=== PATIENT | female | born 1960 | race Caucasian/White ===

== ENCOUNTER 2017-05-05 08:25 | Day surgery (SDC) | payer OTHER ==
[2017-05-04 10:37] VITALS: BMI 25.0
[2017-05-05] MEDS ORDERED: ISOSULFAN BLUE 10 MG/ML VIAL SQ ONE (10:37)
[2017-05-05] MEDS ORDERED: LIDOCAINE HCL 1%, 10 MG/ML (20ML VIAL) ONE ×2 (10:37→13:44)
[2017-05-05] MEDS ORDERED: ROPIVACAINE HCL 0.5% 30ML VIAL ONE (11:16)
[2017-05-05] MEDS ORDERED: MIDAZOLAM HCL 2 MG/2 ML SINGLE DOSE VIAL ONE ×2 (11:17)
[2017-05-05] MEDS ORDERED: DEXAMETHASONE SOD PHOSPHATE/PF 10 MG/ML SDV ONE (11:17)
[2017-05-05] MEDS ORDERED: PROPOFOL 20 ML ONE ×5 (13:10→13:45)
[2017-05-05] MEDS ORDERED: ceFAZolin SODIUM 1 GM VIAL ONE (13:20)
[2017-05-05] MEDS ORDERED: ONDANSETRON 4 MG/2 ML VIAL ONE (13:20)
[2017-05-05] MEDS ORDERED: ceFAZolin SODIUM 1 GM VIAL IVPB ONE (13:20)
[2017-05-05] MEDS ORDERED: LIDOCAINE HCL 1%, 10 MG/ML (20ML VIAL) IJ ONE (13:40)
[2017-05-05] MEDS ORDERED: oxyCODONE HCL 5 MG TABLET PO PRN (15:25)
[2017-05-05] MEDS ORDERED: ONDANSETRON 4 MG/2 ML VIAL IVPUSH PRN (15:25)
[2017-05-05] MEDS ORDERED: LACTATED RINGERS SOLUTION 1,000 ML IV SCH (15:30)
[2017-05-05 15:52] VITALS: TEMP 98.5
[2017-05-05 16:44] VITALS: BP 143/81; PULSE 75
--- NOTE | 2017-05-06 09:25 | OP ---
DATE OF OPERATION: 05/05/2017 PREOPERATIVE DIAGNOSIS: Right breast cancer. POSTOPERATIVE DIAGNOSIS: Right breast cancer. PROCEDURE: Right breast wire-localized central lumpectomy, primary reconstruction, and right sentinel node biopsy. SURGEON: Bita Evangelista MD ANESTHESIA: Paravertebral block and IV sedation. ESTIMATED BLOOD LOSS: Minimal. COMPLICATIONS: None. This was a sterile procedure. INDICATIONS: The patient presented with a superficial palpable mass in the right breast 11 o'clock retroareolar location. She had a mammogram and ultrasound that also noted a second area in the right 1 o'clock areolar border. A biopsy of that revealed an invasive carcinoma, and a biopsy of the palpable mass also revealed an invasive carcinoma. She had an MRI that noted no other abnormality in the right breast. My recommendation was a right central lumpectomy and sentinel node biopsy. The procedure was discussed with her; all of her questions answered. PROCEDURE IN DETAIL: The patient was brought to [facility], taken down to Breast Imaging where a wire was used to localize the clip in the right 1 o'clock location. She was brought to Nuclear Medicine, and technetium labelled sulfa colloid was injected into the 11 o'clock areolar border by the radiologist. She was then brought up to the operating room, and after a paravertebral block and IV sedation and IV antibiotics, the right breast was prepped; 5 mL of Lymphazurin blue dye was injected by me into the right subareolar plexus. Breast was massaged for 5 minutes. Once this was completed, the right breast and axilla were re-prepped and re-draped, and a 4-cm incision was made in the right axilla, carried down to the clavipectoral fascia to identify a hot and blue lymph node. This was sent as right axillary sentinel node number 1, hot and blue. There was a second sentinel node as well, also hot and blue. There was a third which I initially thought was hot, but had no counts; therefore, sent as a right axillary non-sentinel node. Hemostasis was controlled with electrocautery. There was no blue dye radioactivity or pathologic-appearing lymph node in the right axilla. Therefore, once hemostasis was assured, the right central lumpectomy was performed. An ellipse of skin was taken to include the nipple areola as well as the palpable mass within the lumpectomy. Superior, inferomedial, and lateral flaps were raised, and the wire was also used to make sure this was included within the specimen and the complete right central mastectomy was performed, tagged with a long stitch lateral, short stitch superior, sent to Pathology for permanent section. Hemostasis with electrocautery. There was a wide defect left from this lumpectomy. Therefore, tissue transfer procedure was performed. Superior, inferomedial, and lateral flaps were raised , and the parenchyma was approximated in 3 layers with interrupted 2-0 Vicryl, skin approximated with interrupted 3-0 Vicryl, and running 4-0 Biosyn. The axillary incision was also closed in routine fashion of 3-0 Vicryl and running 4-0 Prolene. A sterile dressing with Tegaderm and 4 x 4's applied as well as a mammary binder. She tolerated the procedure well and was taken to recovery in good condition. BITA EVANGELISTA M.D. [id number] MTDD
--- NOTE | 2017-05-10 15:30 | PATH ---
Surgical Pathology Report Patient Name: DONALD WOLF [facility]. Rec. #: [id number] /Age/Gender: 1960 (Age: 57) / F Account: [id number] Location: [facility] SURGICAL Taken: 05/05/2017 Received: 05/06/2017 Reported: 05/10/2017 Physicians: Bita Kline M.D. Specimen(s) Received A: RIGHT AXILLARY SENTINEL LYMPH NODE #1 B: RIGHT AXILLARY SENTINEL LYMPH NODE #2 C: RIGHT AXILLARY NON-SENTINEL LYMPH NODE D: RIGHT BREAST LUMPECTOMY Clinical History Breast cancer Final Diagnosis A. SENTINEL LYMPH NODE #1, RIGHT AXILLARY, BIOPSY: ONE LYMPH NODES NEGATIVE FOR METASTATIC CARCINOMA BY H&E STAIN (0/1). B. SENTINEL LYMPH NODE #2, RIGHT AXILLARY, BIOPSY: TWO LYMPH NODES NEGATIVE FOR METASTATIC CARCINOMA BY H&E STAIN (0/2). C. NON-SENTINEL LYMPH NODE, RIGHT AXILLARY, LYMPHADENECTOMY: THREE LYMPH NODES NEGATIVE FOR METASTATIC CARCINOMA BY H&E STAIN (0/3). D. BREAST, RIGHT, LUMPECTOMY: TWO FOCI OF INVASIVE LOBULARCARCINOMA, PLEOMORPHIC TYPE, 2.0 AND 1.4 CM. LOBULAR CARCINOMA N SITU (LCIS), PLEOMORPHIC AND CLASSICAL TYPES, PRESENT. 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 DCIS AND EXTENT: DCIS IS <25%; ASSOCIATED WITH BOTH FOCI OF INVASIVE CARCINOMA AND PRESENT FOCALLY AWAY FROM IT, WITH EXTENSIONS INTO NIPPLE DUCT AND PAGET'S DISEASE OF THE NIPPLE. SURGICAL RESECTION MARGINS: INVASIVE CARCINOMA FOCALLY EXTENDS TO THE SUPERIOR MARGIN OF RESECTION AT THE SMALLER FOCUS; DCIS IS LESS FOCALLY <1.0 MM FROM THE SUPERIOR MARGIN OF RESECTION AT THE SMALLER FOCUS; OTHER MARGINS ARE NEGATIVE FOR INVASIVE CARCINOMA, DCIS AND PLEOMORPHIC LCIS. SKIN: INVASIVE CARCINOMA DIRECTLY INVOLVES DERMIS WITHOUT SKIN ULCERATION. NIPPLE: DCIS INVOLVES NIPPLE EPIDERMIS (PAGET'S DISEASE PRESENT). LYMPHOVASCULAR INVASION: NOT DEFINITIVELY IDENTIFIED. PERINEURAL INVASION: FOCALLY SUSPICIOUS. SURROUNDING BREAST TISSUE: FIBROCYSTIC CHANGES FOCAL DUCT DILATATION AND DENSE STROMAL FIBROSIS. PATHOLOGIC STAGING: mpT1c pN0 (ALSO REFER TO CHECKLIST BELOW) RECEPTOR STATUS: REFER TO CHECKLIST BELOW. Comment: The histologic features of both foci of invasive carcinoma seen with high nuclear grade and lobular gross pattern. Immunohistochemical stain for E-cadherin performed and interpreted [facility] on blocks D3 and D10 show the following: invasive carcinoma cells in both foci are negative for E-cadherin, supporting lobular phenotype. E-cadherin also highlights foci of DCIS, positive for E-cadherin and foci of LCIS, negative for E-cadherin. The case was discussed with Dr. Kline on 05/10/17. Comments Breast Invasive Carcinoma: Surgical Pathology Cancer Case Summary Based on AJCC/UICC TNM, 7th edition Procedure _x_ Excision with image-guided localization Lymph Node Sampling _x_ Aniwa and non-sentinel lymph nodes Specimen Laterality _x_ Right Tumor Size: Size of Largest Invasive Carcinoma Greatest dimension of largest focus of invasion over 1 mm: 2.0 cm (20 mm) Tumor Focality _x_ Multiple foci of invasive carcinoma Number of foci: 2 Sizes of individual foci: 2.0 and 1.4 cm Macroscopic and Microscopic Extent of Tumor Skin _x_ Invasive carcinoma directly invades into the dermis or epidermis without skin ulceration Nipple _x_ DCIS involves nipple epidermis (Paget's disease of the nipple) Skeletal Muscle _x_ No skeletal muscle present Ductal Carcinoma In Situ (DCIS) _x_ DCIS is present _x_ as a minor component (<25% of tumor) Lobular carcinoma in situ (LCIS) _x_ Present, pleomorphic type Histologic Type of Invasive Carcinoma: _x_ Invasive lobular carcinoma, pleomorphic and classical type Histologic Grade: (Peak Histologic Score) Tubular Differentiation _x_ Score 3 Nuclear Pleomorphism _x_ Score 3 Mitotic Rate _x_ Score 2 Overall Grade _x_ Not applicable (lobular carcinoma) Margins _x_ Margin positive for invasive carcinoma: superior, focally (at the smaller focus) _x_ Margin close to (<1 mm) DCIS: superior, focally (at the smaller focus) Lymph-Vascular Invasion _x_ Not definitively identified Lymph Nodes Total number of lymph nodes examined (sentinel and nonsentinel): 6 Number of sentinel lymph nodes examined: 3 Number of lymph nodes with macrometastases (> 2 mm): 0 Number of lymph nodes with micrometastases (>0.2 mm to 2 mm and/or >200cells):0 Number of lymph nodes with isolated tumor cells (=0.2 mm and =200 cells): 0 Size of largest metastatic deposit (if present): n/a Extranodal Extension _x_ Not applicable Pathologic Staging (pTNM) Primary Tumor (Invasive Carcinoma): mpT1c Regional Lymph Nodes (pN): pN0 Distant Metastasis (pM): not applicable Biomarker Studies Results of ER and VT studies performed on this specimen (block # D3) at [facility] are as follows: ER (clone [id number] mouse monoclonal antibody by [employer]): ~90% nuclear staining with strong to moderate intensity (Positive). VT (clone16 mouse monoclonal antibody by [employer]): ~80% nuclear staining with strong to moderate intensity (Positive). Results of Her2 an Ki67 studies will be reported separately in an addendum. Positive and negative controls (internal if applicable) show appropriate results. Formalin fixation and cold ischemic times are within current ASCO/CAP recommendations for ER, VT and Her2 testing. Electronically Signed Ayush Randhawa M.D. Addendum Reported: 05/11/2017 Addendum Diagnosis Results of Her2 (IHC) & Ki-67 studies performed on block D3 at [place], [place] ([id number]) are as follows: Her2 IHC (EP3 from [employer], formerly known as [id number], using [employer] Polymer Refine detection kit): 0 (Negative) Ki-67: up to 25-30% (Intermediate proliferation index) Positive and negative controls (internal if applicable) show appropriate results. Ayush Randhawa M.D. Gross Description A. Received in formalin labeled "right axillary sentinel lymph node #1" is a 2.0 x 1.4 x 0.5 cm romero, irregular lymph node with attached fat. The specimen is bisected and entirely submitted in 2 cassettes. B. Received in formalin labeled "right axillary sentinel lymph node #2," are 2 irregular lymph nodes measuring 0.7 x 0.6 x 0.2 cm and 1.4 x 0.8 x 0.5 cm. The larger lymph node is bisected and the specimen is entirely submitted in 3 cassettes as follows: 1-one whole lymph node; 2-3-one bisected lymph node. C. Received in formalin labeled "right axillary non-sentinel node" is a 1.4 x 1.1 x 0.6 cm romero, irregular lymph node with attached fat. There are 2 additional smaller lymph nodes measuring 0.3 and 0.6 cm in greatest dimension received within the same container. The specimen is entirely submitted in 3 cassettes as follows: 1-2-one bisected lymph node; 3-two whole lymph nodes. D. Received fresh on an [employer], labeled "right breast lumpectomy" is a 9.2 x 6.3 x 2.5 cm. romero-yellow, irregular, portion of fibroadipose tissue with a needle localization wire present. There is a short suture marking the superior aspect and a long suture marking the lateral aspect, per the surgeon. The anterior surface displays a 5.8 x 2.8 cm romero, elliptical portion of skin with a 1.1 cm in diameter nipple. There is a 1.2 x 0.9 palpable skin lesion 0.5 cm superior-lateral to the nipple. The specimen is inked as follows: Superior blue; inferior green; lateral red; medial yellow; deep black. The specimen is serially sectioned from lateral to medial. Sectioning reveals a 1.8 x 1.5 x 1.5 cm romero, indurated mass involving the skin, contiguous with the skin lesion. The mass is 0.9 cm from the inferior margin, 0.9 cm from the superior margin and 0.7 cm from the deep margin. There is a 1.0 x 0.7 x 0.7 cm second mass superior and medial to the first mass. The second mass is at 0.3 cm from the superior margin and is 0.7 cm from the deep margin. The remaining breast parenchyma displays multiple foci of dense white fibrous tissue. Licensed Physical Therapist Assistant sections are submitted in 12 cassettes as follows: 1-serially sectioned nipple: 2-subareolar shave; 3-one fullface section of mass with skin and deep margin; 4-5-mass with skin, inferior and deep margins; 6-7-mass with skin and superior margin; 8-additional deep margin; 9-10-one full face section each of second mass (each with superior and deep margins); 11-lateral margin; 12-medial margin. Time to fixation: <1h Total formalin fixation time: ~26h 05/06/201705/06/2017
== END 2017-05-05 16:45 | disposition home or self-care (01) ==
LOC: JASU-SURG 08:25
PROVIDERS: ATTEND Surgery
PROC: 0JX60ZC Transfer Chest Subcutaneous Tissue and Fascia with Skin, Subcutaneous Tissue and Fascia, Open Approach (ICD-10-PCS; 2017-05-05)
PROC: 0HBT0ZZ Excision of Right Breast, Open Approach (ICD-10-PCS; principal; 2017-05-05 12:00)
PROC: 07B50ZX Excision of Right Axillary Lymphatic, Open Approach, Diagnostic (ICD-10-PCS; 2017-05-05 12:00)
DX: C50.211 Malignant neoplasm of upper-inner quadrant of right female breast (principal)
CPT/HCPCS: 19281; 78195-TC; 88307-TC; 88342-TC; 94760; A9541

== ENCOUNTER 2017-05-18 11:22 | Day surgery (SDC) | payer OTHER ==
[2017-05-17 09:14] VITALS: BMI 25.0
[~2017-05-18 11:22] MED LIST: LIDOCAINE HCL 1%, 10 MG/ML (20ML VIAL) IJ ONE
[2017-05-18] MEDS ORDERED: LIDOCAINE HCL 1%, 10 MG/ML (20ML VIAL) ONE ×2 (13:13→15:40)
[2017-05-18] MEDS ORDERED: PROPOFOL 20 ML ONE ×2 (15:17)
[2017-05-18] MEDS ORDERED: MIDAZOLAM HCL 2 MG/2 ML SINGLE DOSE VIAL ONE (15:17)
[2017-05-18] MEDS ORDERED: ceFAZolin SODIUM 1 GM VIAL IVPB ONE (15:30)
[2017-05-18] MEDS ORDERED: ceFAZolin SODIUM 1 GM VIAL ONE (15:30)
[2017-05-18] MEDS ORDERED: LIDOCAINE HCL 1%, 10 MG/ML (20ML VIAL) IJ ONE (15:38)
[2017-05-18] MEDS ORDERED: oxyCODONE HCL 5 MG TABLET PO PRN ×2 (16:12)
[2017-05-18] MEDS ORDERED: ONDANSETRON 4 MG/2 ML VIAL IVPUSH PRN (16:12)
[2017-05-18] MEDS ORDERED: LACTATED RINGERS SOLUTION 1,000 ML IV SCH (16:15)
[2017-05-18 16:41] VITALS: TEMP 97.7
--- NOTE | 2017-05-18 17:04 | OP ---
DATE OF OPERATION: 05/18/2017 PREOPERATIVE DIAGNOSIS: Right breast cancer with close superior margin. POSTOPERATIVE DIAGNOSIS: Right breast cancer with close superior margin. PROCEDURE: Right breast re-excision lumpectomy. SURGEON: Bita Kline MD ANESTHESIA: Local and IV sedation. ESTIMATED BLOOD LOSS: Minimal. COMPLICATIONS: None. This was a sterile procedure. INDICATION FOR PROCEDURE: Patient had a right central lumpectomy with sentinel node biopsy for 2 invasive carcinomas. On the smaller carcinoma measuring 1.4, she had a close superior margin to the invasive carcinoma as well as less than a millimeter from DCIS. Therefore, my recommendation was a re-excision of the superior margin. The procedure was discussed with all her questions answered. PROCEDURE IN DETAIL: Patient was brought to [facility], taken into the operating room, and after IV sedation and IV antibiotics, the right breast was prepped and draped in the usual sterile fashion. The central right breast was anesthetized with 1% lidocaine without epinephrine. The prior lumpectomy incision was reopened, and a new superior margin was taken, tagged with a long stitch lateral/short stitch superior, sent as a right breast superior margin. Once hemostasis was assured, there was a wide defect left. Therefore, the parenchyma was approximated in 2 layers of interrupted 2-0 Vicryl, skin approximated with interrupted 3-0 Vicryl and running 4-0 Biosyn. A sterile dressing of Steri-Strips and Tegaderm was applied. She tolerated the procedure well, was taken to recovery in good condition. Merna [id number]
[2017-05-18 18:32] VITALS: BP 129/65; PULSE 73
--- NOTE | 2017-05-21 13:47 | PATH ---
Surgical Pathology Report Patient Name: DONALD WOLF [facility]. Rec. #: [id number] /Age/Gender: 1960 (Age: 57) / F Account: [id number] Location: [facility] SURGICAL Taken: 05/18/2017 Received: 05/19/2017 Reported: 05/21/2017 Physicians: Bita Kline M.D. Specimen(s) Received RIGHT BREAST NEW SUPERIOR MARGIN Clinical History Right breast carcinoma Final Diagnosis RIGHT BREAST, NEW SUPERIOR MARGIN, EXCISION: DUCTAL CARCINOMA IN SITU (DCIS), INTERMEDIATE NUCLEAR GRADE, SOLID, CRIBRIFORM, AND FLAT PATTERN WITH CENTRAL NECROSIS. DCIS IS PRESENT IN 3 OF 10 SUBMITTED BLOCKS. DCIS IS LESS THAN 0.1 CM FROM THE SUPERIOR MARGIN. ADDITIONAL AREAS OF LOBULAR CARCINOMA IN SITU (LCIS), CLASSICAL TYPE PRESENT. NO INVASIVE CARCINOMA IDENTIFIED. Comment: Also see prior specimen [id number]. Immunohistochemical stain for E-Cadherin is positive in areas of DCIS, and negative in areas of LCIS. Immunostain for AE 1/3 on a selected block does not reveal residual invasive carcinoma. Electronically Signed Tahir Barger M.D. Gross Description Received in formalin, labeled "right breast new superior margin," is a 4.5 x 3.1 x 1.2 cm. romero-yellow, irregular, portion of fibroadipose tissue with a short suture marking the superior aspect and a long suture marking the lateral aspect of the specimen, per the surgeon. There is no date localization wire present. . There is no skin or nipple present. The specimen is inked as follows: superior and lateral blue; inferior green; medial yellow; anterior red; deep black. The specimen is serially sectioned from lateral to medial. Sectioning reveals unremarkable fibroadipose tissue. The specimen is entirely and sequentially submitted from lateral to medial in 10 cassettes. Total formalin fixation time: Approximately 26 hours 05/19/201705/19/2017
== END 2017-05-18 17:50 | disposition home or self-care (01) ==
LOC: JASU-SURG 11:22
PROVIDERS: ATTEND Surgery
PROC: 0HBT0ZZ Excision of Right Breast, Open Approach (ICD-10-PCS; principal; 2017-05-18 14:00)
DX: C50.911 Malignant neoplasm of unspecified site of right female breast (principal)
CPT/HCPCS: 88307-TC; 88341-TC; 88342-TC; 94760

== ENCOUNTER 2017-05-26 12:54 | Day surgery (SDC) | payer OTHER ==
[2017-05-25 16:03] VITALS: BMI 25.0
[2017-05-26] MEDS ORDERED: PROPOFOL 20 ML ONE ×2 (16:55→17:21)
[2017-05-26] MEDS ORDERED: MIDAZOLAM HCL 2 MG/2 ML SINGLE DOSE VIAL ONE (16:56)
[2017-05-26] MEDS ORDERED: ceFAZolin SODIUM 1 GM VIAL IVPB ONE (17:18)
[2017-05-26] MEDS ORDERED: ceFAZolin SODIUM 1 GM VIAL ONE (17:18)
[2017-05-26] MEDS ORDERED: KETOROLAC TROMETHAMINE 30 MG/1 ML VIAL ONE (17:18)
[2017-05-26] MEDS ORDERED: DEXAMETHASONE SOD PHOSPHATE 4 MG/1 ML VIAL ONE (17:18)
[2017-05-26] MEDS ORDERED: LIDOCAINE HCL 1%, 10 MG/ML (20ML VIAL) ONE (17:21)
[2017-05-26] MEDS ORDERED: ONDANSETRON 4 MG/2 ML VIAL IVPUSH PRN (17:24)
[2017-05-26] MEDS ORDERED: oxyCODONE HCL 5 MG TABLET PO PRN (17:24)
[2017-05-26] MEDS ORDERED: LACTATED RINGERS SOLUTION 1,000 ML IV SCH (17:30)
[2017-05-26 18:50] VITALS: TEMP 97.9
[2017-05-26 19:38] VITALS: BP 124/79; PULSE 68
--- NOTE | 2017-05-26 23:57 | OP ---
DATE OF OPERATION: 05/26/2017 PREOPERATIVE DIAGNOSIS: Right breast cancer with close margin. POSTOPERATIVE DIAGNOSIS: Right breast cancer with close margin. PROCEDURE: Right reexcision lumpectomy with tissue rearrangement. ANESTHESIA: Local with IV sedation. ESTIMATED BLOOD LOSS: Minimal. COMPLICATIONS: None. This is a sterile procedure. INDICATIONS: The patient had a right breast lumpectomy and again showed more DCIS with a close margin, less than 1 mm on the DCIS superiorly. This, my recommendation was for reexcision for better margins. The procedure was discussed and all of the questions were answered. PROCEDURE IN DETAIL: Patient was brought to [facility], taken into the operating room. After IV sedation and IV antibiotics, the right breast was prepped in the usual sterile fashion. The area in the central right breast and superiorly was anesthetized with 1% lidocaine without epinephrine. The prior incision was sharply reopened. I did take a new wedge of skin medially, just to fix the dog ear. This was sent as the right breast new anterior margin. The lumpectomy cavity was reopened and a full-thickness new superior margin was taken, tagged with a long suture latera, short suture superior, and sent as the right breast new superior margin. Hemostasis was assured with electrocautery. There was a wide defect left from the additional tissue that I took. Therefore, the defect measured 12 cm x 6 cm. Once I created the flaps to reconstruct into the lumpectomy cavity as a tissue transfer procedure. The superior, inferomedial lateral flaps were created and the parenchyma was approximated in 2 layers of interrupted 2-0 Vicryl. Skin approximated with interrupted 3-0 Vicryl, running 4-0 Biosyn. A sterile dressing with Steri-Strips and Tegaderm was applied. She tolerated the procedure well and was taken to recovery in good condition. Merna [id number]
--- NOTE | 2017-05-28 17:04 | PATH ---
Surgical Pathology Report Patient Name: DONALD WOLF [facility]. Rec. #: [id number] /Age/Gender: 1960 (Age: 57) / F Account: [id number] Location: [facility] SURGICAL Taken: 05/27/2017 Received: 05/27/2017 Reported: 05/28/2017 Physicians: Bita Kline M.D. Specimen(s) Received A: RIGHT BREAST NEW ANTERIOR MARGIN B: RIGHT BREAST NEW SUPERIOR MARGIN Clinical History Right breast cancer Final Diagnosis A. BREAST, RIGHT, NEW ANTERIOR MARGIN, EXCISION: BENIGN SKIN AND SUBCUTANEOUS TISSUE WITH PRIOR SURGICAL SITE CHANGES. NEGATIVE FOR INVASIVE OR FOR IN SITU CARCINOMA. B. BREAST, RIGHT, NEW SUPERIOR MARGIN, EXCISION: FOCAL RESIDUAL DUCTAL CARCINOMA IN SITU (DCIS), INTERMEDIATE NUCLEAR GRADE, MICROPAPILLARY TYPE. DCIS IS PRESENT FOCALLY ON 1 OF 18 EXAMINED SLIDES. NEW SUPERIOR MARGIN IS NEGATIVE FOR DCIS (>1.0 CM AWAY FROM DCIS). NO INVASIVE CARCINOMA IDENTIFIED. EXTENSIVE PRIOR SURGICAL SITE CHANGES PRESENT. FIBROCYSTIC CHANGE WITH STROMAL FIBROSIS. BENIGN SKELETAL MUSCLE PRESENT. Electronically Signed Ayush Randhawa M.D. Gross Description A. Received in formalin labeled "right breast new anterior margin" is a 1.8 x 0.6 cm romero, irregular, unoriented and unremarkable portion of skin. The base is inked blue and the specimen is serially sectioned. The specimen is entirely submitted in 2 cassettes. B. Received in formalin labeled "right breast new superior margin" is a 6.5 x 3.0 x 1.8 cm irregular portion of fibroadipose tissue with a short suture marking the superior aspect and a long suture marking the lateral aspect of the specimen, per the surgeon. There is no needle localization wire present. There is no skin or nipple present. The new superior margin is inked blue and the specimen is serially sectioned. The specimen is entirely and sequentially submitted in 18 cassettes from medial (cassette 1) to lateral (cassette 18). Time to fixation: <1h Total formalin fixation time: ~24h 05/27/201705/27/2017
== END 2017-05-26 19:30 | disposition home or self-care (01) ==
LOC: JASU-SURG 12:54
PROVIDERS: ATTEND Surgery
PROC: 0HBT0ZZ Excision of Right Breast, Open Approach (ICD-10-PCS; principal; 2017-05-26 14:00)
DX: C50.911 Malignant neoplasm of unspecified site of right female breast (principal)
CPT/HCPCS: 88307-TC; 94760